=== PATIENT | male | born 1995 | race African-American/Black ===

== ENCOUNTER 2022-06-21 16:35 | Emergency (ER) | payer OTHER ==
[2022-06-21] MEDS ORDERED: Ketorolac Tromethamine 30 MG/ML VIAL ONE (18:54)
[2022-06-21] MEDS ORDERED: Lorazepam 1 MG TAB ONE (18:54)
== END 2022-06-21 19:06 | disposition home or self-care (01) ==
LOC: CSHERS 16:35
DX: F41.9 Anxiety disorder, unspecified (principal)
CPT/HCPCS: 96372; 99283; J1885